=== PATIENT | female | born 1980 | race Caucasian/White ===

== ENCOUNTER 2024-02-19 16:34 | Emergency (ER) | payer OTHER ==
--- OUTSIDE RECORDS SUMMARY | 2024-02-19 16:38 | XMS REPORT | Continuity of Care Document ---
Author Name Unknown Address [address] [facility] [address] [place] [address] [facility] thconnect Address [address] [facility] [place] [address] Care Team Providers Care Hospital Secretary Name Role Phone Pcp, Patient Does Not Have A Primary Care Physic jaime AILYN JESUS Attending Clinician Unavailable AILYN JESUS Attending Clinician Unavailable Nikki Christian DNP Attending Clinician [phone] NIKKI CHRISTIAN Attending Clinician Unavailable [email or web address]_S Attending Clinician Unavailsharon Valles, Adc Lab Main Attending Clinician Unavailabl e Doctor Unassigned, [place] Attending Clinician U MARIBELL Bonilla Attending Clinician Unavailable Maribell Wagner MD Attending Clinician [phone] Loraine Comer MA Attending Clinician Unava ilable AILYN JESUS Admitting Clinician Unavailable [email or web address]_Kacaita_S Admitting Clinician UnavailMARIBELL Chapman Admitting Clinician Unavailable Payers Payer Name Policy Type Policy Number Effective Date Expirati on Date Source [employer] P[employer] [id number] 2020 00:00:00 00:00:00 Problems Condition Name Condition Details Condition Category Status Onset Date Resolution Date Last Treatment Date Treating Clinician Comments Source No known active problems No known active problems Disease [facility] Encounter for surveillan ce of contracept hailey pills Encounter for surveillan ce of contracept hailey pills Disease Resolve d 07-25 00:00: 00 2024-02-01 00:00:00 2024-02-01 09:09:41 [facility] Allergies, Adverse Reactions, Alerts Allergy Name Allergy Type Status Severity Reaction(s) Onset Date Inactive Date Treating Clinician Comments Source NO KNOWN ALLERGIE S Drug Class Active [facility] Social History Social Habit Start Date Stop Date Quantity Comments Source [facility] Alcoholic beverage intake 2024-02-01 00:00:00 2024-02-01 00:00:00 Lifetime non-drinker (finding) [facility] History of Social function 2023-07-31 00:00:00 2023-07-31 00:00:00 [facility] Exposure to SARS-CoV-2 (event) 2022-08-26 00:00:00 2022-09-05 09:24:00 Not sure [facility] Tobacco use and exposure 2022-07-25 00:00:00 2022-07-25 00:00:00 Smokeless tobacco non-user [facility] Alcohol intake 2022-07-25 00:00:00 2022-07-25 00:00:00 Lifetime non-drinker (finding) [facility] Sex assigned at 1980 00:00:00 1980 00:00:00 [facility] Smoking Status Start Date Stop Date Source Never smoked tobacco [facility] Medications Ordered Medication Name Filled Medication Name Start Date Stop Date Current Medication? Ordering Clinician Indication Dosage Frequency Signature (SIG) Comments Components Source fluconazole 150 mg tablet 2023-04 00:00: 00 02-03 04:59 :00 Yes [id number] 150mg Take 1 tablet by mouth once now for 1 dose. [facility] nystatin 100,000 unit/gram ointment 2023-04 00:00: 00 Yes [id number] Apply to area(s) 3 (three) times daily. [facility] desog-e.est radioL/e.es tradioL (EVELIA, 28,) 0.15-0.02 mgx21 /0.01 mg x 5 per tablet 07-30 00:00: 00 Yes [id number] 1{tbl} Take 1 tablet by mouth in the morning. Take pills continuous ly. [facility] desog-e.est radioL/e.es tradioL (SEJAL,) 0.15-0.02 mgx21 /0.01 mg x 5 per tablet 3-13 00:00: 00 07-30 00:00 :00 No [id number] 1{tbl} Take 1 tablet by mouth in the morning. Take pills continuous ly. [facility] desog-e.est radioL/e.es tradioL (SEJAL,) 0.15-0.02 mgx21 /0.01 mg x 5 per tablet 05-26 00:00: 00 Yes [id number] 1{tbl} Take 1 tablet by mouth in the morning. Take pills continuous ly. [facility] desog-e.est radioL/e.es tradioL (SEJAL,) 0.15-0.02 mgx21 /0.01 mg x 5 per tablet 07-25 00:00: 00 05-26 00:00 :00 No [id number] 1{tbl} Take 1 tablet by mouth in the morning. Take pills continuous ly. [facility] desog-e.est radioL/e.es tradioL (SHAJI,) 0.15-0.02 mgx21 /0.01 mg x 5 per tablet 07-18 00:00: 00 07-25 00:00 :00 No [id number] 1{tbl} Take 1 tablet by mouth daily. Take pills continuous ly. [facility] desog-e.est radioL/e.es tradioL (,) 0.15-0.02 mgx21 /0.01 mg x 5 per tablet 07-16 00:00: 00 07-18 00:00 :00 No [id number] 1{tbl} Take 1 tablet by mouth daily. [facility] Immunizations Ordered Immunization Name Filled Immunization Name Date Status Comments Source Influenza Virus Vaccine Quad ID [id number] 2021-12-26 00:00:00 Completed [facility] Influenza Virus Vaccine Quad ID [id number] 2021-12-26 00:00:00 Completed [facility] Influenza Virus Vaccine Quad ID [id number] 2021-12-26 00:00:00 Completed [facility] Influenza Virus Vaccine Quad ID [id number] 2021-12-26 00:00:00 Completed [facility] Influenza Virus Vaccine Quad ID [id number] 2021-12-26 00:00:00 Completed [facility] Influenza Virus Vaccine 2020-02-09 00:00:00 Completed [facility] Influenza Virus Vaccine 2020-02-09 00:00:00 Completed [facility] Influenza Virus Vaccine 2020-02-09 00:00:00 Completed [facility] Influenza Virus Vaccine 2020-02-09 00:00:00 Completed Influenza Virus Vaccine 2020-02-09 00:00:00 Completed Influenza Virus Vaccine 2020-02-09 00:00:00 Completed [facility] Influenza Virus Vaccine 2020-02-09 00:00:00 Completed [facility] Influenza Virus Vaccine 2020-02-09 00:00:00 Completed [facility] Influenza Virus Vaccine Unknown Completed [facility] Influenza Virus Vaccine Quad ID [id number] Unknown Completed [facility] Influenza Virus Vaccine Unknown Completed [facility] Influenza Virus Vaccine Quad ID [id number] Unknown Completed [facility] Influenza Virus Vaccine Unknown Completed [facility] Influenza Virus Vaccine Quad ID [id number] Unknown Completed [facility] Influenza Virus Vaccine Unknown Completed [facility] Influenza Virus Vaccine Quad ID [id number] [id number] Unknown Completed [facility] Influenza Virus Vaccine Unknown Completed [facility] Influenza Virus Vaccine Quad ID [id number] [id number] Unknown Completed [facility] Vital Signs Vital Name Observation Time Observation Value Comments S ource Systolic blood pressure 2024-02-01 13:32:00 116 mm[Hg] [facility] Diastolic blood pressure 2024-02-01 13:32:00 76 mm[Hg] [facility] Heart rate 2024-02-01 13:32:00 75 /[facility] Respiratory rate 2024-02-01 13:32:00 18 /min [facility] Body height 2024-02-01 13:32:00 170.2 cm [facility] Body weight 2024-02-01 13:32:00 63.05 kg [facility] BMI 2024-02-01 13:32:00 21.77 kg/m2 [facility] Systolic blood pressure 2023-07-31 14:23:00 106 mm[Hg] [place] [facility] Diastolic blood pressure 2023-07-31 14:23:00 70 mm[Hg] [place] [facility] Heart rate 2023-07-31 14:23:00 89 /min [facility] Respiratory rate 2023-07-31 14:23:00 18 /min [facility] Body height 2023-07-31 14:23:00 170.2 cm [facility] Body weight 2023-07-31 14:23:00 64.864 kg Univ [facility] BMI 2023-07-31 14:23:00 22.40 kg/m2 [facility] Heart rate 2022-07-25 14:26:00 62 /min Unive [facility] Body temperature 2022-07-25 14:26:00 36.72 [facility] Respiratory rate 2022-07-25 14:26:00 16 /min [facility] Body height 2022-07-25 14:26:00 170.2 cm [facility] Body weight 2022-07-25 14:26:00 78.518 kg Univ [facility] BMI 2022-07-25 14:26:00 27.11 kg/m2 Univ [facility] Systolic blood pressure 2022-07-25 14:26:00 111 mm[Hg] [facility] Diastolic blood pressure 2022-07-25 14:26:00 72 mm[Hg] University o [facility] Systolic blood pressure 2021-07-18 18:00:00 120 mm[Hg] [facility] Diastolic blood pressure 2021-07-18 18:00:00 83 mm[Hg] [facility] Heart rate 2021-07-18 18:00:00 79 /min [facility] Respiratory rate 2021-07-18 18:00:00 18 /min [facility] Body height 2021-07-18 18:00:00 170.2 cm [facility] Body weight 2021-07-18 18:00:00 73.114 kg [facility] BMI 2021-07-18 18:00:00 25.25 kg/m2 [facility] Procedures Procedure Date / Time Performed Performing Clinicia n Source POCT URINALYSIS W/O SPECIFIC GRAVITY 2024-02-01 00:00:00 Nikki Christian [facility] CONSENT/REFUSAL FOR DIAGNOSIS AND TREATMENT 2022-07-25 14:17:02 Doctor Unassigned, [place] [facility] ASSIGNMENT OF BENEFITS 2022-07-25 14:16:49 Docto r Unassigned, [place] [facility] POCT TEST 2022-07-25 00:00:00 Ailyn Jesus [facility] Encounters Start Date/Time End Date/Time Encounter Type Admission Type Attending [facility] Facility Care Department Encounter ID Source 2024-02-05 00:00:00 2024-02-05 13:57:39 Refill Nikki Christian [facility] [id number] 350.1.13.10 4.2.7.2.686 [id number] [facility] 2024-02-03 00:00:00 2024-02-03 12:27:41 Case Management Nikki Christian [facility] [id number] 350.1.13.10 4.2.7.2.686 [id number] [facility] 2024-02-01 08:30:00 2024-02-01 08:44:48 Outpatient R NIKKI CHRISTIAN [facility] [id number] [facility] 2024-02-01 08:30:00 2024-02-01 08:44:48 Office Visit Nikki Christian [facility] 1..840.114 350.1.13.10 4.2.7.2.686 [id number] [facility] 2023-09-11 08:47:57 2023-09-11 23:59:00 Outpatient R AILYN JESUS [facility] [id number] [facility] 2023-09-11 08:47:57 2023-09-11 23:59:00 Hospital Encounter Ailyn Jesus [facility] 1.2.840.114 350.1.13.10 4.2.7.2.686 [id number] [facility] 2023-07-31 09:30:00 2023-07-31 09:36:35 Office Visit Ailyn Jesus [facility] 1.2840.114 350.1.13.10 4.2.7.2.686 [id number] [facility] 2023-07-31 09:30:00 2023-07-31 09:36:35 Outpatient R AILYN JESUS [facility] [id number] [facility] 2023-07-08 00:00:00 2023-07-08 00:00:00 [facility] 1.2840.114 350.1.13.10 4.2.7.2.686 [id number] [facility] 2023-05-26 00:00:00 2023-05-26 00:00:00 Refill Ailyn Jesus [facility] 1.2840.114 350.1.13.10 4.2.7.2.686 [id number] [facility] 2023-02-22 00:00:00 2023-02-22 00:00:00 Outpatient GC_GCBZW_Ka diyala_S PRIV [facility] [id number] [facility] 2022-09-05 08:00:56 2022-09-05 23:59:00 Outpatient R AILYN JESUS [facility] [id number] [facility] 2022-09-05 08:00:56 2022-09-05 23:59:00 Hospital Encounter Ailyn Jesus [facility] 1.2840.114 350.1.13.10 4.2.7.2.686 [id number] [facility] 2022-09-05 09:30:00 2022-09-05 09:45:00 Hide Grader Visit Pob, [facility] 1.20.114 350.1.13.10 4.2.7.2.686 [id number] [facility] 2022-08-11 00:00:00 2022-08-11 00:00:00 Patient Secure Msg Oniel [facility] 1.20.114 350.1.13.10 4.2.7.2.686 [id number] [facility] 2022-07-25 09:30:00 2022-07-25 09:42:08 Outpatient R AILYN JESUS [facility] [id number] [facility] 2022-07-25 09:30:00 2022-07-25 09:42:08 Office Visit Ailyn Jesus [facility] 1.20.114 350.1.13.10 4.2.7.2.686 [id number] [facility] 2022-07-25 00:00:00 2022-07-25 00:00:00 Orders Only Doctor Unassigned, [place] [facility] 1.2840.114 350.1.13.10 4.2.7.2.686 [id number] [facility] 2022-07-24 14:00:00 2022-07-24 14:00:00 Outpatient R MARIBELL WAGNER [facility] [id number] [facility] 2022-07-24 14:00:00 2022-07-24 14:00:00 Outpatient R MARIBELL WAGNER [facility] [id number] [facility] 2021-08-16 08:25:54 2021-08-16 23:59:00 Outpatient R MARIBELL AWGNER [facility] [id number] [facility] 2021-08-16 08:25:54 2021-08-16 23:59:00 Hospital Encounter Maribell Wagner [facility] 1.0.114 350.1.13.10 4.2.7.2.686 [id number] [facility] 2021-07-18 13:00:00 2021-07-18 13:22:13 Outpatient R MARIBELL WAGNER [facility] [id number] [facility] 2021-07-18 13:00:00 2021-07-18 13:22:13 Office Visit Maribell Wagner [facility] 1..114 350.1.13.10 4.2.7.2.686 [id number] [facility] 2021-07-18 00:00:00 2021-07-18 00:00:00 Orders Only Doctor Unassigned, [place] [facility] 1..114 350.1.13.10 4.2.7.2.686 [id number] [facility] 2021-07-09 00:00:00 2021-07-09 00:00:00 Pre Visit Outreach Loraine Comer 1.0.114 350.1.13.10 4.2.7.2.686 [id number] [facility] 2020-07-16 15:30:00 2020-07-16 16:16:22 Outpatient R MARIBELL WAGNER [facility] [id number] Melanie dixon [facility] Results Test Description Test Time Test Comments Results Result Co mments Source [id number] 14:26:00* Test Item Value Reference Range Interpretation Comme nts POCT PREG (test code = 1605) Negative On board controls acceptable with C Line (test code = 3574) Yes POCT PREG LOT # (test code = 3575) POCT PREG TEST DATE ( test code = 3576) [id number] 14:26:00* Test Item Value Reference Range Interpretation Comme nts POCT PREG (test code = 1605) Negative On board controls acceptable with C Line (test code = 3574) Yes POCT PREG LOT # (test code = 3575) POCT PREG TEST DATE ( test code = 3576) [facility] Notes Date/Time Note Provider Source 2024-02-05 13:52:29 Name and verified, pt states she is not completely healed after taking fluconazole, states the cream is working. Has not tried any medication over the counter. Discharge is tolerable. Pt states she will give the cream a few more days to see if it helps and if she doesn't feel better by Thursday she would like to be seen. Informed to call if symptoms persist to get put on schedule for an evaluation. Pt verbalized understanding. aMgy Chamberlain RN 02/05/2024 1:55 PM Magy Chamberlain RN [facility] 2023-07-08 12:50:34 Medication was refilled x 1, WWE scheduled 07/31/2023. Giulia Harper RN [facility] 2023-07-08 11:23:14 Patient is requesting a refill until she comes in to her WWE in July. [id number] - [place], [place] - [address] [facility] [address] [employer] [facility] 2023-05-26 15:40:30 Received rf request for Viorele Tab. WWE 08/18. Name and verified. Pt stated that she does not have enough. Refilled med enough until appt. MANSI CASTLE RN 05/26/2023 3:45 PM H CARE WORKER [facility]
--- NOTE | 2024-02-19 18:11 | RAD REPORT ---
EXAM:Extremity Venous Uni Ltd HISTORY: Leg pain TECHNIQUE: Sonographic evaluation right lower extremity performed.Grayscale, color and spectral marisa sis performed on all vessels COMPARISON: None. FINDINGS: Right common femoral, superficial femoral, greater saphenous, popliteal and posterior tibial veins ar e compressible and demonstrate augmentation. Doppler demonstrates good flow. IMPRESSION: No evidence of deep venous thrombosis involving the right lower extremity.
--- NOTE | 2024-02-19 18:13 | RAD REPORT ---
EXAM:Lower Extremity Artery Uni Ltd HISTORY: Right leg pain TECHNIQUE: Sonographic evaluation lower extremity arteries performed.Grayscale, color and spectral analysis performed on all vessels COMPARISON: February 15, 2024 CT FINDINGS: Right common femoral arterial waveform triphasic An occlusion involves mid to distal right superficial femoral artery. Right popliteal arterial waveform monophasic Right posterior tibial waveform monophasic. Right dorsalis pedis arterial waveform monophasic IMPRESSION: Occlusion of the mid to distal right superficial femoral artery
--- NOTE | 2024-02-19 18:53 | ER ---
Nurse's Notes [facility] Name: Sydnee Parekh Age: 43 yrs Sex: Female : 1980 Arrival Date: 02/19/2024 Time: 16:34 Bed 15 Private MD: Diagnosis: Occlusion of mid to distal right superficial femoral artery Presentation: 02/18 16:56 Chief complaint: Patient states: referred here by Dr. Rojas to check for right leg kc6 DVT. pt states she started noticing discoloration x1 week. Coronavirus screen: At this time, the client does not indicate any symptoms associated with coronavirus-19. Ebola Screen: No symptoms or risks identified at this time. Initial Sepsis Screen: Does the patient meet any 2 criteria? No. Patient's initial sepsis screen is negative. Does the patient have a suspected source of infection? No. Patient's initial sepsis screen is negative. Risk Assessment: Do you want to hurt yourself or someone else? Patient reports no desire to harm self or others. Onset of symptoms was February 19, 2024. 16:56 Method Of Arrival: Ambulatory [facility] 16:56 Acuity: LAURA 3 kc6 ROLLER MAN: 16:58 LMP 12/24/2023, unknown kc6 Historical: - Allergies: 16:58 No Known Allergies; kc6 - Home Meds: 16:58 clopidogrel 75 mg oral tablet 1 tab daily [Active]; Pepcid 20 mg Oral tablet 1 tab kc6 daily [Active]; - PMHx: 16:58 blood clots; kc6 - PSHx: 16:58 None; kc6 - Immunization history:: Adult Immunizations up to date. - Infectious Disease History:: Denies. - Social history:: Smoking status: Patient denies any tobacco usage or history of. Screenin:33 [facility] ED Fall Risk Assessment (Adult) History of falling in the last 3 months, tm6 including since admission No falls in past 3 months (0 pts) Confusion or Disorientation No (0 pts) Intoxicated or Sedated No (0 pts) Impaired Gait No (0 pts) Mobility Assist Device Used No (0 pt) Altered Elimination No (0 pt) Score/Fall Risk Level 0 - 2 = Low Risk Oriented to surroundings, Maintained a safe environment, Educated pt \T\ family on fall prevention, incl call for assistance when getting out of bed. Abuse screen: Denies threats or abuse. Denies injuries from another. Nutritional screening: No deficits noted. Tuberculosis screening: No symptoms or risk factors identified. Assessment: 18:33 General: Appears in no apparent distress. Behavior is calm, cooperative. Pain: tm6 Complains of pain in right leg Pain currently is 2 out of 10 on a pain scale. Neuro: Level of Consciousness is awake, alert, obeys commands, Oriented to person, place, time, situation. Cardiovascular: Patient's skin is warm and dry. Respiratory: Airway is patent Respiratory effort is even, unlabored, Respiratory pattern is regular, symmetrical. GI: No signs and/or symptoms were reported involving the gastrointestinal system. Abdomen is flat, non-distended. : No signs and/or symptoms were reported regarding the genitourinary system. EENT: No signs and/or symptoms were reported regarding the EENT system. Derm: Reports bruising behind right leg. Musculoskeletal: Reports pain in right leg Pain is 2 out of 10 on a pain scale. 19:02 Reassessment: Patient and/or family updated on plan of care and expected duration. Pain tm6 level reassessed. Patient is alert, oriented x 3, equal unlabored respirations, skin warm/dry/pink. Vital Signs: 16:56 BP 120 / 82; Pulse 77; Resp 17 S; Temp 98.5(O); Pulse Ox 100% on R/A; Weight 63.5 kg kc6 (R); Height 5 ft. 7 in. (R); Pain 2/10; 18:33 BP 123 / 85; Pulse 71; Pulse Ox 100% on R/A; MAP 96 mmHg; tm6 19:02 BP 138 / 109; Pulse 65; Resp 17; Temp 97.5; Pulse Ox 100% on R/A; MAP 115 mmHg; Pain tm6 0/10; 16:56 Body Mass Index 21.93 (63.50 kg, 170.18 cm) kc6 16:56 Pain Scale: Adult kc6 19:02 Pain Scale: Adult tm6 ED Course: 16:37 Patient arrived in ED. ra3 16:43 Thomas Scherer PA is PHCP. cp 16:44 Thomas Rojas MD is Attending Physician. cp 16:58 Triage completed. kc6 16:58 Arm band placed on. kc6 17:44 US Extremity Venous Unilateral Ltd In Process Unspecified. EDMS 17:44 US LE Artery Uni Ltd In Process Unspecified. EDMS 18:33 Susana Katz, RN is Primary Nurse. tm6 18:33 Patient has correct armband on for positive identification. Placed in gown. Bed in low tm6 position. Call light in reach. Side rails up X 1. Provided Education on: use of call sauer. Client placed on continuous cardiac and pulse oximetry monitoring. NIBP monitoring applied. Pulse ox on. NIBP on. Door closed. Noise minimized. 19:03 No provider procedures requiring assistance completed. Patient did not have IV access tm6 during this emergency room visit. Administered Medications: No medications were administered Medication: 18:33 VIS not applicable for this client. tm6 Outcome: 18:53 Discharge ordered by MD. cp 19:03 Discharged to home ambulatory, with friend, tm6 19:03 Condition: stable 19:03 Discharge instructions given to patient, Instructed on discharge instructions, follow up and referral plans. Demonstrated understanding of instructions, follow-up care, 19:03 Patient left the ED. tm6 Signatures: Dispatcher [employer] EDMS Thomas Scherer PA PA cp Campbell, Kaitlyn, RN RN kc6 Susana Katz, EDSON RN tm6 Yvette Castaneda ra3 Corrections: (The following items were deleted from the chart) 19:03 19:02 BP 138 / 109; Pulse 65bpm; Resp 17bpm; Pulse Ox 100% RA; MAP 115 mmHg; Temp 16F; tm6 Pain 0/10, Adult; tm6
--- NOTE | 2024-02-19 18:53 | EDPHYS ---
Physician Documentation [facility] Name: Sydnee Parekh Age: 43 yrs Sex: Female : 1980 Arrival Date: 02/19/2024 Time: 16:34 Bed 15 Private MD: ED Physician Thomas Rojas HPI: 02/18 17:00 This 43 yrs old Female presents to ER via Ambulatory with complaints of right leg pain cp with bruising. 17:00 The patient presents with pain, that is acute, swelling, tenderness. The complaints cp affect the right calf. Context: resulted from an unknown cause, the patient can fully bear weight, the patient is able to ambulate, without difficulty, Problem is a result from a previous injury: No. Onset: The symptoms/episode began/occurred 1 week(s) ago. Associated signs and symptoms: Pertinent negatives fever, warmth, shortness of breath. 17:00 Treatment prior to arrival includes: no previous treatment. Severity of symptoms: in cp the emergency department the symptoms are unchanged, despite home interventions. Patient reports she came to ED for evaluation of possible DVT. 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 - Infectious Disease History:: Denies. - Social history:: Smoking status: Patient denies any tobacco usage or history of. ROS: 17:05 Constitutional: Negative for body aches, chills, fever, poor PO intake, cp 17:05 Eyes: Negative for injury, pain, redness, and discharge, cp 17:05 Cardiovascular: Negative for chest pain, palpitations, 17:05 Respiratory: Negative for cough, shortness of breath, wheezing, 17:05 Abdomen/GI: Negative for abdominal pain, nausea, vomiting, and diarrhea, 17:05 MS/extremity: Positive for ecchymosis, pain, swelling, tenderness, of the right calf and right leg, 17:05 Neuro: Negative for altered mental status, headache, weakness, 17:05 All other systems are negative, Exam: 17:10 Constitutional: The patient appears in no acute distress, alert, awake, non-toxic, well cp developed, well nourished, 17:10 Head/Face: Normocephalic, atraumatic. cp 17:10 Eyes: Periorbital structures: appear normal, Conjunctiva: normal, no exudate, no injection, Sclera: no appreciated abnormality, Lids and lashes: appear normal, bilaterally, 17:10 ENT: External ear(s): are unremarkable, Mouth: Lips: moist, Oral mucosa: pink and intact, moist, Posterior pharynx: Airway: no evidence of obstruction, patent, 17:10 Neck: ROM/movement: is normal, is supple, without pain, no range of motions limitations, 17:10 Chest/axilla: Inspection: normal, 17:10 Cardiovascular: Rate: normal, Rhythm: regular, 17:10 Respiratory: the patient does not display signs of respiratory distress, Respirations: normal, no use of accessory muscles, no retractions, labored breathing, is not present, Breath sounds: are clear throughout, no decreased breath sounds, 17:10 Back: pain, is absent, ROM is normal, 17:10 Musculoskeletal/extremity: Extremities: noted in the right calf: ecchymosis, pain, swelling, tenderness, Vital Signs: 16:56 BP 120 / 82; Pulse 77; Resp 17 S; Temp 98.5(O); Pulse Ox 100% on R/A; Weight 63.5 kg kc6 (R); Height 5 ft. 7 in. (R); Pain 2/10; 18:33 BP 123 / 85; Pulse 71; Pulse Ox 100% on R/A; MAP 96 mmHg; tm6 19:02 BP 138 / 109; Pulse 65; Resp 17; Temp 97.5; Pulse Ox 100% on R/A; MAP 115 mmHg; Pain tm6 0/10; 16:56 Body Mass Index 21.93 (63.50 kg, 170.18 cm) kc6 16:56 Pain Scale: Adult kc6 19:02 Pain Scale: Adult tm6 MDM: 16:55 Medical Screening Exam initiated cp 18:52 Data reviewed: vital signs, nurses notes, radiologic studies, ultrasound, I have cp discussed the patient's presentation/case with the attending Emergency Department Physician; and as a result, I will discharge patient. 18:52 Differential diagnosis: cellulitis, acute arterial occlusion, DVT. Management of cp patient was discussed with the following: collection systems consultant Dr Guevara, vascular surgeon, who will see patient in clinic next week for f/u. Counseling: I had a detailed discussion with the patient and/or guardian regarding the historical points, exam findings, and any diagnostic results supporting the discharge/admit diagnosis, radiology results, the need for outpatient follow up, with vascular, to return to the emergency department if symptoms worsen or persist or if there are any questions or concerns that arise at home. 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 EDMS EDMS 17:20 17:20 Lower Extremity Artery Uni Ltd+US.RAD.BRZ ordered. EDMS EDMS
[2024-02-20 07:36] VITALS: O2SAT 100
[2024-02-20 07:47] VITALS: BP 138/109; TEMP 97.5
== END 2024-02-19 19:03 | disposition home or self-care (01) ==
LOC: ER 16:34
DX: I74.3 Embolism and thrombosis of arteries of the lower extremities (principal)
CPT/HCPCS: 93926; 93971; 99283